=== PATIENT | female | born 1980 | race Hispanic/Latino ===

== ENCOUNTER 2020-09-20 06:56 | Emergency (ER) | payer OTHER ==
[2020-09-20 07:35] LABS: BASOPHILS % (AUTO) 0.7 % (0.0-5.0); EOSINOPHILS % (AUTO) 2.6 % (0.0-8.0); HEMATOCRIT 44.5 % (36-48); LYMPHOCYTES % (AUTO) 36.4 % (21.0-51.0); MEAN CORPUSCULAR HEMOGLOBIN 29.1 pg (27.0-33.0); MEAN CORPUSCULAR HGB CONC 33.5 g/dL (32.0-36.0); MEAN CORPUSCULAR VOLUME 86.9 fL (79-99); MONOCYTES % (AUTO) 8.6 % (3.0-13.0); NEUTROPHILS % (AUTO) 51.3 % (40.0-77.0); PLATELET COUNT (AUTO) 244 K/uL (130-400); RED BLOOD CELL COUNT(AUTO) 5.12 MIL/uL (4.00-5.50); RED CELL DISTRIBUTION WIDTH 13.3 % (11.0-15.5)
[2020-09-20] MEDS ORDERED: ONDANSETRON HCL 4 MG/2 ML VIAL ONE (07:36)
[2020-09-20] MEDS ORDERED: MORPHINE SULFATE 4 MG/1ML SYG ONE ×2 (07:37→09:39)
[2020-09-20 07:50] LABS: BILIRUBIN,TOTAL 0.4 mg/dL (0.2-1.0); CREATININE 0.8 mg/dL (0.5-1.5); POTASSIUM 3.3 mmol/L (3.5-5.1)
[2020-09-20] MEDS ORDERED: DiphenhydrAMINE HCL 50 MG/ML VIAL ONE (09:38)
[2020-09-20 10:34] LABS: APPEARANCE,URINE Turbid (CLEAR); BILIRUBIN,URINE Negative (NEGATIVE); COLOR,URINE Yellow (YELLOW); GLUCOSE, URINE (UA) Negative (NEGATIVE); KETONES,URINE Negative (NEGATIVE); LEUKOCYTE ESTERASE ,URINE Negative (NEGATIVE); NITRATE,URINE Negative (NEGATIVE); OCCULT BLOOD,URINE Large (NEGATIVE); PROTEIN,URINE Trace mg/dL (NEGATIVE); UROBILINOGEN,URINE 0.2 mg/dL (0.2-1.0)
[2020-09-20 10:46] LABS: BACTERIA,URINE Few /HPF (None Seen); WBC,URINE 0-1 /HPF (0-1); YEAST,URINE BUDDING Few /HPF (None Seen)
[2020-09-20 10:47] LABS: MUCUS,URINE Rare LPF (None Seen); SQUAMOUS EPITHELIAL CELL,UR Moderate /HPF (0-2)
[2020-09-20] MEDS ORDERED: KETOROLAC TROMETHAMINE 30MG/ML ONE (10:54)
[2020-09-20] MEDS ORDERED: TAMSULOSIN HCL 0.4 MG CAP.ER.24H ONE (11:19)
== END 2020-09-20 12:48 | disposition home or self-care (01) ==
LOC: EDH 06:56
DX: N20.1 Calculus of ureter (principal); N13.4 Hydroureter; Z98.890 Other specified postprocedural states; Z90.49 Acquired absence of other specified parts of digestive tract; Z88.8 Allergy status to other drugs, medicaments and biological substances
CPT/HCPCS: 36415; 74176; 80053; 81001; 81025; 83690; 85025; 96361 ×2; 96365; 96375; 96376; 99284; J1200; J1885; J2270 ×2; J2405

== ENCOUNTER 2020-09-21 22:36 | Emergency (ER) | payer OTHER ==
[2020-09-21] MEDS ORDERED: TAMSULOSIN HCL 0.4 MG CAP.ER.24H ONE (23:06)
[2020-09-21] MEDS ORDERED: MORPHINE SULFATE 4 MG/1ML SYG ONE (23:06)
[2020-09-21] MEDS ORDERED: SODIUM CHLORIDE 0.9% 1000ML 1,000 ML IV ONE (23:06)
[2020-09-21 23:09] LABS: BASOPHILS % (AUTO) 0.5 % (0.0-5.0); EOSINOPHILS % (AUTO) 0.3 % (0.0-8.0); LYMPHOCYTES % (AUTO) 22.5 % (21.0-51.0); MEAN CORPUSCULAR HEMOGLOBIN 29.1 pg (27.0-33.0); MEAN CORPUSCULAR VOLUME 85.7 fL (79-99); MONOCYTES % (AUTO) 9.3 % (3.0-13.0); NEUTROPHILS % (AUTO) 67.1 % (40.0-77.0); PLATELET COUNT (AUTO) 222 K/uL (130-400); RED BLOOD CELL COUNT(AUTO) 5.02 MIL/uL (4.00-5.50); RED CELL DISTRIBUTION WIDTH 13.3 % (11.0-15.5); WHITE BLOOD COUNT (AUTO) 12.6 K/uL (4.8-10.8)
[2020-09-21 23:13] LABS: APPEARANCE,URINE Clear (CLEAR); BILIRUBIN,URINE Negative (NEGATIVE); COLOR,URINE Yellow (YELLOW); GLUCOSE, URINE (UA) Negative (NEGATIVE); KETONES,URINE 15 mg/dL (NEGATIVE); LEUKOCYTE ESTERASE ,URINE Negative (NEGATIVE); NITRATE,URINE Negative (NEGATIVE); OCCULT BLOOD,URINE Trace (NEGATIVE); PROTEIN,URINE Negative (NEGATIVE)
[2020-09-21 23:22] LABS: HCG,QUAL RESULT NEGATIVE (NEGATIVE)
[2020-09-21 23:23] LABS: BACTERIA,URINE None Seen /HPF (None Seen); RBC,URINE None Seen /HPF (0-1); WBC,URINE None Seen /HPF (0-1)
[2020-09-21 23:33] LABS: POTASSIUM 5.6 mmol/L (3.5-5.1)
[2020-09-21 23:38] LABS: ALBUMIN 2.9 g/dL (3.5-5.0); BILIRUBIN,TOTAL 0.9 mg/dL (0.2-1.0)
[2020-09-22] MEDS ORDERED: KETOROLAC TROMETHAMINE 30MG/ML ONE (00:25)
[2020-09-22 01:09] LABS: POTASSIUM 4.1 mmol/L (3.5-5.1)
[2020-09-22] MEDS ORDERED: BISACODYL 10 MG SUPP.RECT RC ONE (02:11)
== END 2020-09-22 02:26 | disposition home or self-care (01) ==
LOC: EDH 22:36
DX: N20.1 Calculus of ureter (principal); N13.4 Hydroureter; Z20.828 Contact with and (suspected) exposure to other viral communicable diseases; Z88.8 Allergy status to other drugs, medicaments and biological substances; Z90.49 Acquired absence of other specified parts of digestive tract; Z98.890 Other specified postprocedural states
CPT/HCPCS: 36415 ×2; 74176; 80053; 81001; 81025; 83605; 83690; 85025; 87426; 96365; 96375 ×2; 99284; J1885; J2270; J7030; U0003; 80048

== ENCOUNTER 2020-12-03 08:02 | Emergency (ER) | payer OTHER ==
[2020-12-03 08:59] LABS: BASOPHILS % (AUTO) 0.4 % (0.0-5.0); EOSINOPHILS % (AUTO) 2.3 % (0.0-8.0); HEMATOCRIT 43.2 % (36-48); MEAN CORPUSCULAR HEMOGLOBIN 29.4 pg (27.0-33.0); MEAN CORPUSCULAR HGB CONC 33.1 g/dL (32.0-36.0); MEAN CORPUSCULAR VOLUME 88.9 fL (79-99); MONOCYTES % (AUTO) 7.1 % (3.0-13.0); NEUTROPHILS % (AUTO) 56.9 % (40.0-77.0); PLATELET COUNT (AUTO) 217 K/uL (130-400); RED BLOOD CELL COUNT(AUTO) 4.86 MIL/uL (4.00-5.50); RED CELL DISTRIBUTION WIDTH 13.2 % (11.0-15.5); WHITE BLOOD COUNT (AUTO) 7.3 K/uL (4.8-10.8)
[2020-12-03 09:06] LABS: CREATININE 0.7 mg/dL (0.5-1.5); POTASSIUM 3.5 mmol/L (3.5-5.1)
[2020-12-03 09:07] LABS: INR 0.94 (0.85-1.15); PROTHROMBIN TIME 10.3 SEC (9.6-11.6)
[2020-12-03 09:09] LABS: PARTIAL THROMBOPLASTIN TIME 25.1 SEC (26.3-35.5)
[2020-12-03 09:11] LABS: ALBUMIN 2.8 g/dL (3.5-5.0); BILIRUBIN,TOTAL 0.3 mg/dL (0.2-1.0); TOTAL PROTEIN, SERUM 7.5 g/dL (6.0-8.3)
== END 2020-12-03 11:50 | disposition home or self-care (01) ==
LOC: EDH 08:02
DX: R20.2 Paresthesia of skin (principal); R20.0 Anesthesia of skin; R73.9 Hyperglycemia, unspecified; E66.9 Obesity, unspecified; Z98.890 Other specified postprocedural states; Z90.49 Acquired absence of other specified parts of digestive tract; Z87.891 Personal history of nicotine dependence; Z88.8 Allergy status to other drugs, medicaments and biological substances; Z68.41 Body mass index [BMI] 40.0-44.9, adult; Z86.16 Personal history of COVID-19; Z87.442 Personal history of urinary calculi
CPT/HCPCS: 36415; 70450; 80053; 84484; 85025; 85610; 85730; 93005